=== PATIENT | male | born 1945 | race Caucasian/White ===

== ENCOUNTER 2019-07-02 18:04 | Outpatient (CLI) | payer MEDICARE, OTHER, SELFPAY ==
--- NOTE | 2019-07-02 | XR_ITS ---
WS: [id number] Lumbar spine, 3 views, 07/02/2019 Clinical Data: LOW BACK PAIN WITH SCIATICA Comparison: None. Findings: No compression fractures or subluxation is seen. There is degenerative disc narrowing at L5-S1. The t ransverse processes and SI joints are normal. There is anterior osteoarthritic change at L4 and L5. The abdominal aorta shows calcification in the wall but no aneurysm is seen. There is a large amount of fecal material throughout the colon. XR/XR lumbar spine 2-3V* [id number] Impression: 1. Degenerative disc at L5-S1. 2. Mild osteoarthritic spurring at L4 and L5.
== END 2019-07-02 18:05 | disposition home or self-care (01) ==
LOC: RADOUTREAD 07-03 12:17
PROVIDERS: Family Provider Family Medicine; PCP Family Medicine; Visit Provider Nurse Practitioner
DX: Z01.89 Encounter for other specified special examinations (principal)

== ENCOUNTER 2019-07-15 08:14 | Outpatient (CLI) | payer MEDICARE, OTHER, SELFPAY ==
--- NOTE | 2019-07-15 08:25 | CT_ITS ---
WS: [id number] CT LUMBAR SPINE, noncontrast. HISTORY: L/S RADICULOPATHY @ L5 TECHNIQUE: Contiguous 2.5 mm axial imaging are performed. Sagittal and coronal reformats are submitte d and reviewed. All CT scans at [facility] use at least one of these dose optimization te chniques: automated exposure control; mA and/or kV adjustment per patient size (includes targeted exa ms where dose is matched to clinical indication); or iterative reconstruction. IV contrast: None DLP: 2063.65 mGycm COMPARISON: None available. Normal posterior lumbar alignment. Mild disc space narrowing and desiccation at L5-S1. Endplate osteo phyte extends posteriorly from L5 by 4 mm. No fractures or pars defects. L1-2: Normal. L2-3: Mild annular disc bulging without stenosis. L3-4: Increased soft tissue in the RIGHT superior subarticular recess and extends into the RIGHT fora men. There is contact on the L3 and L4 nerve roots. This is consistent with an extruded disc herniati on. Disc measures 11 mm in height by 14 mm transversely. Complete effacement of fat in the RIGHT fora men. Mild ligamentum flavum hypertrophy and diffuse annular disc bulging contributing to mild central stenosis. L4-5: Diffuse annular disc bulging is moderate. More focal RIGHT paracentral disc protrusion with con tact on the thecal sac. Mild diffuse osteophytic ridging. Mild central and subarticular recess stenos is. No foraminal narrowing. L5-S1: Diffuse annular disc bulging with a RIGHT paracentral disc osteophyte. There is osteophytic ri dging with mild contact on the RIGHT S1 nerve root by an osteophyte. Moderate calcification within the abdominal aorta. Mild ectasia of the abdominal aorta. Calcification extends into the common iliac arteries bilaterally. CT/CT lumbar spine wo con* [id number] IMPRESSION: 1. Soft tissue mass posterior to the L3 vertebral body. Mass extends into the RIGHT L3-4 foramen. Most likely an extruded disc herniation which has superiorl y migrated from the L3-4 disc. There is contact on the RIGHT lateral thecal sac and moderate to severe narrowing of the RIGHT foramen and effacement of fat. D isc contact on the RIGHT L3 and L4 nerve roots. Recommend follow-up MRI lumbar spine. 2. RIGHT paracentral disc osteophyte at L5-S1 with contact on the RIGHT S1 ner ve root. 3. RIGHT paracentral disc protrusion with mild contact on the thecal sac at L4 -5. Mild central and subarticular recess stenosis.
== END 2019-07-15 08:15 | disposition home or self-care (01) ==
LOC: RADWPI 08:22
PROVIDERS: Family Provider Family Medicine; PCP Family Medicine; Visit Provider Family Medicine
DX: M54.17 Radiculopathy, lumbosacral region (principal); Z85.46 Personal history of malignant neoplasm of prostate; M25.78 Osteophyte, vertebrae; M51.26 Other intervertebral disc displacement, lumbar region
CPT/HCPCS: 72131

== ENCOUNTER → 2019-09-14 07:46 | Outpatient (BNVA) | payer MEDICARE, OTHER, SELFPAY | PROVIDERS: Family Provider Family Medicine; PCP Family Medicine; Visit Provider Urology | DX: C61 Malignant neoplasm of prostate (principal) | CPT/HCPCS: 81001; 84153 ==

== ENCOUNTER 2020-10-21 07:35 | Outpatient (CLI) | payer MEDICARE, OTHER, SELFPAY ==
--- NOTE | 2020-10-21 07:54 | CT_ITS ---
WS: [id number] LDCT LUNG CANCER SCREENING HISTORY: HX OF TOBACCO USE TECHNIQUE: Axial imaging performed from the apices to 1 cm below the costophrenic angles. Coronal and sagittal reformats are submitted with axial MIP series. All CT scans at [facility] use at least one of these dose optimization techniques: automated exposure control; mA and/or kV adjustment per patient size (includes targeted exams where dose is matched to clinical indication); or iterativ e reconstruction. DLP: 86.7 mGy.cm DIvol: 2.53 mGy COMPARISON: 03/12/2016, 11/13/2014 Diagnostic quality: Satisfactory Lung Nodules: Spiculated nodule at the RIGHT apex is been present since at least 2006 with no increas e in size. Additional biapical pleural thickening and nodularity is unchanged. Long-term stability 9 mm well-circumscribed nodule in the periphery RIGHT lower lobe, image 176 of series 3. Benign granulo ma RIGHT lung base. Additional benign granuloma medial LEFT lung base. Small amount of mucus in the t rachea to the RIGHT of midline. Lungs: Marked hyperinflation. There are peripheral changes of reticulation. There are a few areas als o of mild traction bronchiectasis greatest at the RIGHT lung base. Early honeycombing may be present along the inferior major fissures bilaterally. These changes have not significantly progressed since 03/12/2016. Heart: Mild prominence of the heart. Mild coronary artery calcifications. Other findings: Moderate atherosclerosis aorta. No aneurysm. No adenopathy can be appreciated on this unenhanced study. Small hiatal hernia. Increase in thoracic kyphosis. CT/CT lung screening [id number] IMPRESSION: LUNG-RADS: 2-Benign Appearance or Behavior FOLLOW UP: 12 Month: Continue annual screening with LDCT OTHER FINDINGS (S MODIFIER): None.
== END 2020-10-21 07:36 | disposition home or self-care (01) ==
PROVIDERS: PCP Family Medicine; Visit Provider Internal Medicine Critical Care Medicine
DX: Z12.2 Encounter for screening for malignant neoplasm of respiratory organs (principal); Z87.891 Personal history of nicotine dependence; I70.0 Atherosclerosis of aorta; K44.9 Diaphragmatic hernia without obstruction or gangrene
CPT/HCPCS: 71271

== ENCOUNTER 2022-01-10 06:54 | Outpatient (CLI) | payer MEDICARE, OTHER, SELFPAY ==
--- NOTE | 2022-01-10 07:30 | CT_ITS ---
WS: [id number] LDCT LUNG CANCER SCREENING TECHNIQUE: Noncontrast CT of the chest with coronal and sagittal reformatted images. CLINICAL INFORMATION: Lung Nodule COMPARISON: None. DLP: 70.40 mGy.cm DIvol: Mean CTDIvol: 1.60 (mGy) All CT scans at [facility] use at least one of these dose optimization techniques: automat ed exposure control; mA and/or kV adjustment per patient size (includes targeted exams where dose is matched to clinical indication); or iterative reconstruction. FINDINGS: Spiculated RIGHT upper lobe mass measuring 1.3 x 1.5 cm is unchanged compared to previous in the [facility] T lung apex. Prior PET/CT this is FDG negative. Moderate chronic emphysematous changes with hyperinflation. Peripheral subpleural reticulation. Tract ion bronchiectasis in the RIGHT greater than LEFT lower lobes.. Additional 9 mm nodule in the RIGHT l ower lobe peripherally measuring 11 mm slightly more prominent. This measures 1 to 2 mm larger today. Fibrosis the lung apices. Dense aortic calcification. Normal caliber thoracic aorta. Coronary calcification. No axillary lympha denopathy. Adrenal glands are normal. Small esophageal hiatal hernia. Mild thoracic kyphosis. CT/CT lung screening [id number] IMPRESSION: 1. Spiculated lesion in the RIGHT lung apex unchanged from multiple prior exam inations. This was FDG negative on the prior PET/CT. 2. Slight increase in size of the RIGHT lower lobe ovoid nodule measuring 11 m m today compared to 9 mm previous. This has been present since 2016 and slightl y increased in size since October 21, 2020. Recommend 6 month follow-up. LUNG-RADS: 3-Probably Benign FOLLOW UP: 6 Month LDCT
== END 2022-01-10 06:55 | disposition home or self-care (01) ==
LOC: RAD 06:54
PROVIDERS: PCP Family Medicine; Visit Provider Internal Medicine Critical Care Medicine
DX: Z12.2 Encounter for screening for malignant neoplasm of respiratory organs (principal); R91.1 Solitary pulmonary nodule; Z87.891 Personal history of nicotine dependence
CPT/HCPCS: 71271

== ENCOUNTER → 2022-02-09 08:26 | Outpatient (BNVA) | payer MEDICARE, OTHER, SELFPAY | PROVIDERS: PCP Family Medicine; Visit Provider Internal Medicine Pulmonary Disease | DX: R91.1 Solitary pulmonary nodule (principal); J43.9 Emphysema, unspecified; Z87.891 Personal history of nicotine dependence | CPT/HCPCS: 99214 ==

== ENCOUNTER → 2022-03-23 08:23 | Outpatient (BNVA) | payer MEDICARE, OTHER, SELFPAY | PROVIDERS: PCP Family Medicine; Visit Provider Urology | DX: C61 Malignant neoplasm of prostate (principal); N39.9 Disorder of urinary system, unspecified | CPT/HCPCS: 81003; 99213 ==

== ENCOUNTER 2022-07-11 07:09 | Outpatient (CLI) | payer MEDICARE, OTHER, SELFPAY ==
--- NOTE | 2022-07-11 07:00 | CTR_ITS ---
PROCEDURE INFORMATION: Exam: CT Chest Without Contrast; Diagnostic Exam date and time: 07/11/2022 7:31 AM Age: 77 years old Clinical indication: Abnormal findings; Abnormal radiologic exam of lung or chest; Additional info: 6 month f/u post ldct; 6 month follow up ldct. Ex smoker with history of prostate cancer. Known lesion and nodule. TECHNIQUE: Imaging protocol: Diagnostic computed tomography of the chest without contrast. Radiation optimization: All CT scans at this facility use at least one of these dose optimization techniques: automated exposure control; mA and/or kV adjustment per patient size (includes targeted exams where dose is matched to clinical indication); or iterative reconstruction. REPORTING DATA: Count of CT and Cardiac NM exams in prior 12 months: This patient has received [address] and 0 known cardiac nuclear medicine studies in the 12 months prior to the current study. COMPARISON: 1. CT lung screening [id number] 01/10/2022 7:[address] lung screening [id number] 10/21/2020 8:[address] chest w con* [id number] 03/12/2016 10:28 AM RADIATION DOSE METRICS: Total DLP (mGy-cm): 335.28 FINDINGS: Lungs: There is an ovoid circumscribed noncalcified pulmonary nodule in the right lower lobe on axial series 4, image 45 measuring 11 x 9 mm. The nodule measured 10 x 9 mm on 03/12/2016 and is stable since 10/21/2020. There is a stable spiculated apical subpleural nodular scar in the right upper lobe on series 4, image 7 measuring 20 x 15 mm. This finding is unchanged since 2016. There is mild upper lung predominant centrilobular emphysema. There is a 6 mm nodule along the minor fissure visible on series 4, image 27, stable since 2016. No further imaging follow-up is this of this nodule is necessary. There is subsegmental atelectasis in the lung bases. There is no consolidation. Pleural spaces: There is no pleural effusion or pneumothorax. Heart: Heart size is normal. There is no pericardial effusion. Coronary arteries: There is severe coronary artery calcification. Lymph nodes: There is no mediastinal or hilar lymphadenopathy. Vasculature: There is severe aortic atherosclerotic disease. Intraperitoneal space: Visible structures in the upper abdomen are unremarkable. Bones/joints: Bones are unremarkable. Soft tissues: The extrathoracic soft tissues are unremarkable. CT/CT chest wo con [id number] IMPRESSION: 1. Right lower lobe pulmonary nodule measuring 11 mm. The nodule is minimally increased in size over the past 6 years and is stable for nearly 2 years. Probable benign nodule. Consider a single additional chest CT follow-up in 1 year. 2. Nodular subpleural scarring in the right lung apex is stable since 2016. 3. Incidental findings above.
== END 2022-07-11 07:10 | disposition home or self-care (01) ==
LOC: RAD 07:14
PROVIDERS: PCP Family Medicine; Visit Provider Internal Medicine Critical Care Medicine
DX: R91.1 Solitary pulmonary nodule (principal); J43.9 Emphysema, unspecified; J98.4 Other disorders of lung; I25.10 Atherosclerotic heart disease of native coronary artery without angina pectoris; Z85.46 Personal history of malignant neoplasm of prostate; Z87.891 Personal history of nicotine dependence
CPT/HCPCS: 71250

== ENCOUNTER → 2022-08-09 10:23 | Outpatient (BNVA) | payer MEDICARE, OTHER, SELFPAY | PROVIDERS: PCP Family Medicine; Visit Provider Internal Medicine Pulmonary Disease | DX: R91.1 Solitary pulmonary nodule (principal); J43.9 Emphysema, unspecified; Z87.891 Personal history of nicotine dependence | CPT/HCPCS: 99214 ==

== ENCOUNTER → 2022-08-24 09:55 | Outpatient (BNVA) | payer MEDICARE, OTHER, SELFPAY | PROVIDERS: PCP Family Medicine; Referring Provider Family Medicine; Visit Provider Nurse Practitioner Family | DX: L57.0 Actinic keratosis (principal); I87.2 Venous insufficiency (chronic) (peripheral); L82.0 Inflamed seborrheic keratosis; L82.1 Other seborrheic keratosis; L81.4 Other melanin hyperpigmentation; D18.01 Hemangioma of skin and subcutaneous tissue | CPT/HCPCS: 17000; 17003; 17110; 99204 ==

== ENCOUNTER → 2022-10-08 10:10 | Outpatient (BNVA) | payer MEDICARE, OTHER, SELFPAY | PROVIDERS: PCP Family Medicine; Visit Provider Dermatology | DX: C44.321 Squamous cell carcinoma of skin of nose (principal); L72.0 Epidermal cyst; L90.5 Scar conditions and fibrosis of skin; L57.0 Actinic keratosis; L82.0 Inflamed seborrheic keratosis | CPT/HCPCS: 11102; 11103; 17000; 17110; 69100; 99213 ==

== ENCOUNTER → 2022-10-30 10:03 | Outpatient (BNVA) | payer MEDICARE, OTHER, SELFPAY | PROVIDERS: PCP Family Medicine; Visit Provider Dermatology | DX: C44.329 Squamous cell carcinoma of skin of other parts of face (principal) | CPT/HCPCS: 12051; 17311 ==

== ENCOUNTER → 2022-11-09 07:59 | Outpatient (BNVA) | payer MEDICARE, OTHER, SELFPAY | PROVIDERS: PCP Family Medicine; Visit Provider Dermatology | DX: Z48.02 Encounter for removal of sutures (principal) | CPT/HCPCS: 99024; 99212 ==

== ENCOUNTER → 2022-11-23 08:25 | Outpatient (BNVA) | payer MEDICARE, OTHER, SELFPAY | PROVIDERS: PCP Family Medicine; Visit Provider Nurse Practitioner Family | DX: L57.0 Actinic keratosis (principal); L82.1 Other seborrheic keratosis; L57.8 Other skin changes due to chronic exposure to nonionizing radiation; L81.4 Other melanin hyperpigmentation; D22.5 Melanocytic nevi of trunk; Z85.828 Personal history of other malignant neoplasm of skin; Z87.891 Personal history of nicotine dependence | CPT/HCPCS: 17000; 17003; 99213 ==

== ENCOUNTER → 2023-02-06 08:43 | Outpatient (BNVA) | payer MEDICARE, OTHER, SELFPAY | PROVIDERS: PCP Family Medicine; Visit Provider Nurse Practitioner Family | DX: Z85.828 Personal history of other malignant neoplasm of skin (principal); L57.0 Actinic keratosis; L82.1 Other seborrheic keratosis; L57.8 Other skin changes due to chronic exposure to nonionizing radiation; L81.4 Other melanin hyperpigmentation | CPT/HCPCS: 17000; 17110; 99213 ==

== ENCOUNTER → 2023-03-29 08:21 | Outpatient (BNVA) | payer MEDICARE, OTHER, SELFPAY | PROVIDERS: PCP Family Medicine; Visit Provider Nurse Practitioner Family | DX: Z85.828 Personal history of other malignant neoplasm of skin (principal); L82.1 Other seborrheic keratosis; L81.4 Other melanin hyperpigmentation; D22.5 Melanocytic nevi of trunk; L57.0 Actinic keratosis | CPT/HCPCS: 17000; 99213 ==

== ENCOUNTER 2023-05-17 09:49 | Outpatient (CLI) | payer MEDICARE, OTHER, SELFPAY ==
--- NOTE | 2023-05-17 10:00 | CT_ITS ---
WS: [id number] CT CHEST TECHNIQUE: Noncontrast CT of the chest with coronal and sagittal reformatted images. CLINICAL INFORMATION: R91.1 - Solitary pulmonary nodule COMPARISON: CT chest 07/11/2022 DLP: 409.[address] scans at [facility] use at least one of these dose optimization techniques: automated e xposure control; mA and/or kV adjustment per patient size (includes targeted exams where dose is matc hed to clinical indication); or iterative reconstruction. FINDINGS: Stable RIGHT lower lobe pulmonary nodule measuring 11 mm appears stable since 07/11/2022. This appears stable compared to 2020. Stable spiculated opacity RIGHT lung apex. Hyperinflation. Chronic emphysematous changes. Traction bronchiectasis RIGHT lower lobe. Cardiomegaly . Coronary calcification. No mediastinal or hilar lymphadenopathy. Small esophageal hiatal hernia. Th oracic kyphosis. Biapical fibrosis with pleural thickening. Calcified granulomas. IMPRESSION: 1. Stable 11 mm nodule RIGHT lower lobe. This is relatively stable since 2020 and increased in size since 2015 2. Chronic emphysematous changes with hyperinflation. 3. Stable spiculated opacity in the RIGHT lung apex. 4. No other significant changes compared to previous.
== END 2023-05-17 09:50 | disposition home or self-care (01) ==
LOC: RAD 09:49
PROVIDERS: PCP Family Medicine; Visit Provider Internal Medicine Pulmonary Disease
DX: R91.1 Solitary pulmonary nodule (principal)
CPT/HCPCS: 71250

== ENCOUNTER → 2023-07-08 09:37 | Outpatient (BNVA) | payer MEDICARE, OTHER, SELFPAY | PROVIDERS: PCP Family Medicine; Visit Provider Internal Medicine Pulmonary Disease | DX: R91.1 Solitary pulmonary nodule (principal); J43.9 Emphysema, unspecified | CPT/HCPCS: 99214 ==

== ENCOUNTER → 2023-09-12 08:19 | Outpatient (BNVA) | payer MEDICARE, OTHER, SELFPAY | PROVIDERS: PCP Family Medicine; Visit Provider Nurse Practitioner Family | DX: D48.5 Neoplasm of uncertain behavior of skin (principal); L57.0 Actinic keratosis; L82.1 Other seborrheic keratosis; L91.8 Other hypertrophic disorders of the skin; L81.4 Other melanin hyperpigmentation | CPT/HCPCS: 11102; 17000; 99213 ==

== ENCOUNTER → 2023-10-28 07:56 | Outpatient (BNVA) | payer MEDICARE, OTHER, SELFPAY | PROVIDERS: PCP Family Medicine; Visit Provider Dermatology | DX: C44.319 Basal cell carcinoma of skin of other parts of face (principal) | CPT/HCPCS: 12052; 13132; 17311 ==

== ENCOUNTER → 2024-02-05 11:15 | Outpatient (BNVA) | payer MEDICARE, OTHER, SELFPAY | PROVIDERS: PCP Family Medicine; Visit Provider Nurse Practitioner Family | DX: L57.0 Actinic keratosis (principal); L82.1 Other seborrheic keratosis; L81.4 Other melanin hyperpigmentation; D22.5 Melanocytic nevi of trunk; Z85.828 Personal history of other malignant neoplasm of skin | CPT/HCPCS: 17000; 99213 ==

== ENCOUNTER → 2024-03-23 08:28 | Outpatient (BNVA) | payer MEDICARE, OTHER, SELFPAY | PROVIDERS: PCP Family Medicine; Visit Provider Nurse Practitioner Family | DX: D22.39 Melanocytic nevi of other parts of face (principal); L81.4 Other melanin hyperpigmentation; L57.8 Other skin changes due to chronic exposure to nonionizing radiation; L82.1 Other seborrheic keratosis; Z08 Encounter for follow-up examination after completed treatment for malignant neoplasm; Z85.828 Personal history of other malignant neoplasm of skin; L82.0 Inflamed seborrheic keratosis; L53.8 Other specified erythematous conditions; Z78.9 Other specified health status; R20.8 Other disturbances of skin sensation; L29.89 Other pruritus; D48.5 Neoplasm of uncertain behavior of skin | CPT/HCPCS: 11102; 17000; 17110; 99213 ==

== ENCOUNTER → 2024-05-05 07:58 | Outpatient (BNVA) | payer MEDICARE, OTHER, SELFPAY | PROVIDERS: PCP Family Medicine; Visit Provider Dermatology | DX: L98.8 Other specified disorders of the skin and subcutaneous tissue (principal); L82.1 Other seborrheic keratosis; L72.0 Epidermal cyst; D69.2 Other nonthrombocytopenic purpura; L81.4 Other melanin hyperpigmentation; C44.329 Squamous cell carcinoma of skin of other parts of face; L57.0 Actinic keratosis | CPT/HCPCS: 17000; 17282; 99213 ==

== ENCOUNTER 2024-05-20 11:52 | Outpatient (CLI) | payer MEDICARE, OTHER, SELFPAY ==
--- NOTE | 2024-05-20 11:59 | CT_ITS ---
WS: [id number] CT chest wo con [id number] HISTORY: LUNG NODULE TECHNIQUE: Axial imaging performed through the thorax. Coronal and sagittal reformats are submitted. All CT scans at [facility] use at least one of these dose optimization techniques: automated exposure control; mA and/or kV adjustment per patient size (includes targeted exams where dose is matched to clinical indication); or iterative reconstruction. CONTRAST: None DLP: 383.40 mGy.cm COMPARISON: 05/17/2023, PET/CT 09/26/2019, lung screening 10/21/2020 Lungs and central airway: Advanced emphysema. Reidentified is a subsolid nodule at the RIGHT apex measuring 1.8 x 1.1 cm which is stable and negative on prior PET/CT imaging. Subpleural 12 mm nodule is noncalcified in the RIGHT lower lobe. Stable over multiple prior years. There is a new nodule measuring 10 mm at the LEFT lung base. Pleura: Normal. No pleural effusion. Heart and pericardium: Normal size heart with no pericardial effusion. Mediastinum and jesus: Hilar regions cannot be well evaluated for adenopathy without IV contrast. There is mild fullness in the hilar regions but similar to prior studies. Vessels: Moderate atherosclerotic plaque throughout the aorta. Plaque extends into the great vessels. Mildly dilated pulmonary artery. Chest wall and lower neck: No soft tissue masses. Upper abdomen: Visualized adrenal glands are negative. Hepatic and splenic granulomata. Small hiatal hernia. Osseous structures: Mild increase in thoracic kyphosis. CT/CT chest wo con [id number] IMPRESSION: 1. Long-term stability RIGHT apical subsolid nodule and a well-circumscribed 1 2 mm nodule in the RIGHT lower lobe. Negative on prior PET/CT imaging. 2. New 10 mm nodule at the LEFT lung base abuts the diaphragm. Recommend follo w-up chest CT in 3 months. If possible chest CT should be performed with IV con trast to better evaluate the hilar regions for adenopathy. 3. Advanced atherosclerosis aorta.
== END 2024-05-20 11:53 | disposition home or self-care (01) ==
LOC: RAD 11:56
PROVIDERS: PCP Family Medicine; Visit Provider Family Medicine
DX: R91.8 Other nonspecific abnormal finding of lung field (principal); I70.0 Atherosclerosis of aorta; J43.9 Emphysema, unspecified; I28.1 Aneurysm of pulmonary artery; K75.3 Granulomatous hepatitis, not elsewhere classified; D73.89 Other diseases of spleen; K44.9 Diaphragmatic hernia without obstruction or gangrene; M40.294 Other kyphosis, thoracic region
CPT/HCPCS: 71250

== ENCOUNTER → 2024-06-04 14:54 | Outpatient (BNVA) | payer MEDICARE, OTHER, SELFPAY | PROVIDERS: PCP Family Medicine; Visit Provider Nurse Practitioner Family | DX: L57.8 Other skin changes due to chronic exposure to nonionizing radiation (principal); L81.4 Other melanin hyperpigmentation; D22.0 Melanocytic nevi of lip; L82.1 Other seborrheic keratosis; Z08 Encounter for follow-up examination after completed treatment for malignant neoplasm; Z85.828 Personal history of other malignant neoplasm of skin; L57.0 Actinic keratosis | CPT/HCPCS: 17000; 99213 ==

== ENCOUNTER 2024-08-18 09:48 | Outpatient (CLI) | payer MEDICARE, OTHER, SELFPAY ==
--- NOTE | 2024-08-18 09:52 | CT_ITS ---
WS: [id number] CT chest w con* [id number] HISTORY: LUNG NODULE TECHNIQUE: Axial imaging performed through the thorax. Coronal and sagittal reformats are submitted. All CT scans at [facility] use at least one of these dose optimization techniques: automated exposure control; mA and/or kV adjustment per patient size (includes targeted exams where dose is matched to clinical indication); or iterative reconstruction. CONTRAST: Omnipaque 350; 100 mL IV. DLP: 395.80 mGy.cm COMPARISON: 07/11/2022, 05/20/2024, PET/CT 09/26/2019 Lungs and central airway: Chronic emphysema with pulmonary hyperexpansion. Subsolid nodule RIGHT apex measures 13 x 12 mm has been present on multiple prior examinations. PET/CT from 09/26/2019 was negative. Long-term stability of a subpleural nodule RIGHT lower lobe measuring 9 mm. Subpleural nodule at the LEFT lung base measures 12 mm in diameter. This nodule has very slightly increased in size since 05/20/2024. This nodule was not present in 2015 or 07/11/2022. Additional peripheral reticular interstitial areas of thickening. Early changes of honeycombing at the lung bases. Pleura: Normal. No pleural effusion. Heart and pericardium: Normal size heart with no pericardial effusion. Mediastinum and jesus: No mediastinum or hilar adenopathy. Vessels: Mild atherosclerosis aorta. Normal size aorta. Normal size pulmonary artery. Chest wall and lower neck: No soft tissue masses. Upper abdomen: Small hiatal hernia. Mild hepatic steatosis. Splenic and hepatic granulomata. Calcification at the origin of the celiac axis and SMA. Very minimal thickening of the LEFT adrenal gland. Osseous structures: Mild increase in thoracic kyphosis. No destructive bone lesions. CT/CT chest w con* [id number] IMPRESSION: 1. Subpleural nodule LEFT lung base measures 12 mm. Nodule is increased in siz e since 05/20/2024 and new since prior studies from 2022. This nodule is a large enough for PET/CT imaging to be accurate. Otherwise follow-up chest CT in 3 mo nths recommended. 2. Long-term stability subsolid irregular nodule at the RIGHT apex was also PE T/CT negative in 2019. 3. Long-term stability subpleural nodule RIGHT lower lobe. 4. No mediastinal or hilar adenopathy. 5. No mediastinal or hilar adenopathy. 6. Atherosclerotic calcification within the thoracic and suprarenal abdominal aorta.
[2024-08-18] MEDS: iohexol 350 mg/mL 500 mL Btl (per mL) IV (10:25)
== END 2024-08-18 09:49 | disposition home or self-care (01) ==
PROVIDERS: PCP Family Medicine; Visit Provider Family Medicine
DX: R91.8 Other nonspecific abnormal finding of lung field (principal); I70.0 Atherosclerosis of aorta; J43.8 Other emphysema; J98.4 Other disorders of lung; K44.9 Diaphragmatic hernia without obstruction or gangrene; K76.0 Fatty (change of) liver, not elsewhere classified; D73.89 Other diseases of spleen; K75.3 Granulomatous hepatitis, not elsewhere classified; I70.8 Atherosclerosis of other arteries; K55.1 Chronic vascular disorders of intestine; M40.294 Other kyphosis, thoracic region
CPT/HCPCS: 71260

== ENCOUNTER → 2024-08-27 13:41 | Outpatient (BNVA) | payer MEDICARE, OTHER, SELFPAY | PROVIDERS: PCP Family Medicine; Visit Provider Nurse Practitioner Family | DX: L30.0 Nummular dermatitis (principal); L81.4 Other melanin hyperpigmentation; L57.8 Other skin changes due to chronic exposure to nonionizing radiation; D22.5 Melanocytic nevi of trunk; L82.1 Other seborrheic keratosis; Z08 Encounter for follow-up examination after completed treatment for malignant neoplasm; Z85.828 Personal history of other malignant neoplasm of skin; S00.86XA Insect bite (nonvenomous) of other part of head, initial encounter; X58.XXXA Exposure to other specified factors, initial encounter; L82.0 Inflamed seborrheic keratosis; L29.89 Other pruritus; R20.8 Other disturbances of skin sensation; Z78.9 Other specified health status; L57.0 Actinic keratosis | CPT/HCPCS: 10120; 17000; 17110; 99214 ==

== ENCOUNTER 2024-08-28 13:23 | Outpatient (CLI) | payer MEDICARE, OTHER, SELFPAY ==
--- NOTE | 2024-08-28 13:28 | PETR_ITS ---
PROCEDURE INFORMATION: Exam: PET/CT Skull Base to Mid-thigh Exam date and time: 08/28/2024 2:09 PM Age: 79 years old Clinical indication: Abnormal findings; Subpleural nodule left lung base measures 12 mm; Additional info: Abnormal imaging, HX of prostate cancer LABS AND CLINICAL REPORTS: Glucose: 105 mg/dl Treatment strategy for malignancy (PET staging): Initial Staging (PI) TECHNIQUE: Imaging protocol: Following at least four-hour fasting and following the injection of radiopharmaceutical, low dose CT images were obtained. Then, PET images were obtained. Attenuation corrected images were constructed using the CT scan. Fused images of PET and CT were reviewed. The standardized uptake values (SUV) reported below are maximum values within a region of interest, expressed in gm/ml. Exam includes orbital meatal line to mid-thigh. SUV normalization method: BodyWeight Radiopharmaceutical: 10.81 mCi F-18 FDG (Fluorodeoxyglucose), IV. Time of imaging post radiopharmaceutical administration: 45 minutes Injection site: [facility] COMPARISON: 1. CT chest w con* [id number] 08/18/2024 10:20 AM 2. PT PET Scan 09/26/2019 12:[address] chest wo con [id number] 05/20/2024 11:59 AM FINDINGS: Brain: Visualized brain has normal physiologic uptake. Pharynx: No abnormal uptake. Larynx: No abnormal uptake. Lungs, pleura and trachea: Pulmonary emphysema. Subpleural left basilar nodule measures 1.8 cm on axial image 139 and shows SUV max 10.1. Irregular non FDG-avid right apical opacity measuring 2.2 x 1.1 cm on axial image 76 is stable in keeping with benignity. There is also exterminator termite stability of benign non FDG avid 1.2 cm subpleural right lower lobe nodule on axial image 126. Stable benign non FDG-avid 5 mm right upper lobe nodule on axial image 104. Bilateral calcified granulomata. Mild bibasilar subpleural reticulation. Heart: Normal physiologic uptake. Coronary arteries: Heavy coronary artery calcification. Mediastinal space: No abnormal uptake. Esophagus: Small hiatal hernia and distal esophageal FDG uptake. Liver: Focal left hepatic lobe uptake without discrete underlying CT abnormality shows SUV max 4.0 on axial image 150. Calcified granulomata. Gallbladder and biliary ducts: No abnormal uptake. Pancreas: No abnormal uptake. Spleen: No abnormal uptake. Calcified granulomata. Adrenal glands: No abnormal uptake. Kidneys and ureters: Normal physiologic uptake. Stomach and bowel: No abnormal uptake. Colonic diverticulosis without findings of diverticulitis. Reproductive: Suspect prior prostate resection. Vasculature: No abnormal uptake. Heavy systemic atherosclerotic calcification with mild fusiform infrarenal abdominal aortic dilatation measuring 2.9 cm. Lymph nodes: No abnormal uptake. No lymphadenopathy in the head, neck, chest, abdomen, pelvis, and extremities. Skeleton: Degenerative change along the spine, acromioclavicular and sacroiliac joints as well as mildly at both hips. Soft tissues: No abnormal uptake in the visualized head, neck, chest, abdomen, pelvis, and extremities. METRICS: Mediastinal blood pool: SUV mean 1.9 Liver uptake: SUV mean 2.4 PET/PET skull to thigh INIT [id number] IMPRESSION: 1. FDG avid subpleural left basilar nodule shows avid FDG uptake concerning for malignancy. 2. Focal left hepatic lobe FDG uptake without discrete underlying CT abnormality. Recommend liver MRI without and with contrast. 3. Additional chronic and incidental findings as above, to include colonic diverticulosis and atherosclerosis with heavy coronary artery calcification.
== END 2024-08-28 13:24 | disposition home or self-care (01) ==
LOC: RAD 13:23
PROVIDERS: PCP Family Medicine; Visit Provider Family Medicine
DX: R91.8 Other nonspecific abnormal finding of lung field (principal); J43.8 Other emphysema; J84.10 Pulmonary fibrosis, unspecified; J84.89 Other specified interstitial pulmonary diseases; I25.10 Atherosclerotic heart disease of native coronary artery without angina pectoris; K44.9 Diaphragmatic hernia without obstruction or gangrene; K75.3 Granulomatous hepatitis, not elsewhere classified; D73.89 Other diseases of spleen; K57.30 Diverticulosis of large intestine without perforation or abscess without bleeding; R93.89 Abnormal findings on diagnostic imaging of other specified body structures; I70.0 Atherosclerosis of aorta; I77.811 Abdominal aortic ectasia; M47.9 Spondylosis, unspecified; M19.012 Primary osteoarthritis, left shoulder; M19.011 Primary osteoarthritis, right shoulder; M46.1 Sacroiliitis, not elsewhere classified; M16.0 Bilateral primary osteoarthritis of hip
CPT/HCPCS: 78815; A9552

== ENCOUNTER → 2025-03-08 08:24 | Outpatient (BNVA) | payer MEDICARE, OTHER, SELFPAY | PROVIDERS: PCP Family Medicine; Visit Provider Nurse Practitioner Family | DX: L30.0 Nummular dermatitis (principal); L72.8 Other follicular cysts of the skin and subcutaneous tissue; Z08 Encounter for follow-up examination after completed treatment for malignant neoplasm; Z85.828 Personal history of other malignant neoplasm of skin; L82.0 Inflamed seborrheic keratosis; Z78.9 Other specified health status; R20.8 Other disturbances of skin sensation; L53.8 Other specified erythematous conditions; L57.0 Actinic keratosis | CPT/HCPCS: 17000; 17110; 99214 ==